=== PATIENT | male | born 1980 | race African-American/Black ===

== ENCOUNTER 2017-03-01 16:11 | Emergency (ER) | payer OTHER ==
[~2017-03-01] VITALS: Ht 177.8 cm; Wt 72.7 kg
[2017-03-01 19:10] VITALS: BP 119/79
== END 2017-03-01 19:10 | disposition home or self-care (01) | DRG 605 ==
LOC: ED 16:11
DX: S50.312A Abrasion of left elbow, initial encounter (principal); S70.212A Abrasion, left hip, initial encounter; S90.512A Abrasion, left ankle, initial encounter; V68.5XXA Driver of heavy transport vehicle injured in noncollision transport accident in traffic accident, initial encounter